=== PATIENT | male | born 1975 | race Caucasian/White ===

== ENCOUNTER 2018-03-29 22:38 | Emergency (ER) | payer MEDICARE ==
[~2018-03-29] VITALS: Ht 180.3 cm; Wt 96.2 kg
--- NOTE | 2018-03-29 22:52 | ED.ADGEN ---
Past History Past Medical History: Anxiety, GERD, Hypertension, Other Past Medical History Cerebral palsy Adult General Chief Complaint Chief Complaint ".. I ve been having some chest pain off and on.. and I did take a anti acid this morning... but I eric had constant pain since 830 tonight... here in this area.. ( points to just under clavicle Lt sternal border).. I had this same thing in 2005.. and I went to the hospital and it turned out to be just anxiety... The bad thing is I ve been to the ER three times in this past week.. I twisted my Lt ankle,, then I was cooking .. dropped the knife and it cut my Lt leg..."... " and now this.." HPI HPI Patient is a 42 year old male who presents with above hx and complaints of chest pain of area just under left clavicle and sternal edge. Pain appears to be reproducible with palpation. Does cover an area approximately 1-2 cm. Patient denies any previous history of cardiac disorders. Patient does not smoke patient denies illicit drug use. Patient denies any trauma. Patient does have a history of GERD which in the past he is taking anti acid s.. (zantac, pepcid, ect.). Patient has had lifelong cerebral palsy with right-sided deficits. Recent moved from [place] to [facility] in November. Has not followed with a primary care here since move from [place]. No hx prior DVT or PE with him or family. . Review of Systems Review of Systems Constitutional: Denies fever or chills [] Eyes: Denies change in visual acuity, redness, or eye pain [] HENT: Denies nasal congestion or sore throat [] Respiratory: Denies cough or shortness of breath [] Cardiovascular: No additional information not addressed in HPI [] GI: Denies abdominal pain, nausea, vomiting, bloody stools or diarrhea [] : Denies dysuria or hematuria [] Musculoskeletal: Denies back pain or joint pain [] Integument: Denies rash or skin lesions [] Neurologic: Denies headache, focal weakness or sensory changes [] Endocrine: Denies polyuria or polydipsia [] All other systems were reviewed and found to be within normal limits, except as documented in this note. Family History Family History Noncontributory Current Medications Current Medications Current Medications Medications (Trade) Dose Ordered Sig/Benja Start Time Stop Time Status Last Admin Dose Admin Aspirin (Children'S Aspirin) 324 mg 1X ONCE 03/29/18 23:15 03/30/18 00:02 DC 03/29/18 23:35 324 MG Famotidine (Pepcid Vial) 20 mg 1X ONCE 03/29/18 23:15 03/30/18 00:02 DC 03/29/18 23:34 20 MG Ketorolac Tromethamine (Toradol 30mg Vial) 30 mg 1X ONCE 03/30/18 01:00 03/30/18 01:01 UNV Lactated Ringer's 1,000 ml @ 1,000 mls/hr Q1H 03/29/18 23:12 03/30/18 00:11 DC 03/29/18 23:35 1,000 MLS/HR Magnesium Hydroxide (Milk Of Magnesia) 2,400 mg 1X ONCE 03/30/18 01:00 03/30/18 01:01 UNV Potassium Chloride (KCl Oral Soln) 40 meq 1X ONCE 03/30/18 01:00 03/30/18 01:01 UNV Allergies Allergies Allergies Coded Allergies Type Severity Reaction Last Updated Verified No Known Drug Allergies 03/29/18 No Physical Exam Physical Exam Constitutional: Moderately acute distress, non-toxic appearance. [] HENT: Normocephalic, atraumatic, bilateral external ears normal, oropharynx moist, no oral exudates, nose normal. [] Eyes: PERRLA, EOMI, conjunctiva normal, no discharge. [] Neck: Normal range of motion, no tenderness, supple, no stridor. [] Cardiovascular:Heart rate regular rhythm, no murmur ,. Lungs & Thorax: Bilateral breath sounds equal apexes with scattered wheezes on auscultation []. Point tenderness on upper left sternal border just under clavicle. Abdomen: Bowel sounds normal, soft, no tenderness, no masses, no pulsatile masses. [] Skin: Warm, dry, no erythema, no rash. [] Back: No tenderness, no CVA tenderness. [] Extremities: No tenderness, no cyanosis, no clubbing, ROM intact, no edema. [] Laceration kj on left medel. No cording appreciated. Right-sided deficits ( Weakness) that are chronic. Neurologic: Alert and oriented X 3, patient reports no change in his baseline motor or sensory function, no focal deficits noted. [] Psychologic: Affect anxious, judgement normal, mood normal. [] Current Patient Data Vital Signs Vital Signs Date Time Temp Pulse Resp B/P (MAP) Pulse Ox O2 Delivery O2 Flow Rate FiO2 03/29/18 23:39 103 18 134/77 (96) 96 Room Air 03/29/18 22:38 98.6 Lab Results Laboratory Tests Test 03/29/18 22:47 03/30/18 00:15 White Blood Count 6.9 x10^3/uL (4.0-11.0) Red Blood Count 5.41 x10^6/uL (4.30-5.70) Hemoglobin 16.5 g/dL (13.0-17.5) Hematocrit 47.5 % (39.0-53.0) Mean Corpuscular Volume 88 fL (79-100) Mean Corpuscular Hemoglobin 30 pg (25-35) Mean Corpuscular Hemoglobin Concent 35 g/dL (31-37) Red Cell Distribution Width 13.4 % (11.5-14.5) Platelet Count 300 x10^3/uL (140-400) Neutrophils (%) (Auto) 59 % (31-73) Lymphocytes (%) (Auto) 29 % (24-48) Monocytes (%) (Auto) 8 % (0-9) Eosinophils (%) (Auto) 3 % (0-3) Basophils (%) (Auto) 1 % (0-3) Neutrophils # (Auto) 4.1 x10^3uL (1.8-7.7) Lymphocytes # (Auto) 2.0 x10^3/uL (1.0-4.8) Monocytes # (Auto) 0.6 x10^3/uL (0.0-1.1) Eosinophils # (Auto) 0.2 x10^3/uL (0.0-0.7) Basophils # (Auto) 0.1 x10^3/uL (0.0-0.2) Prothrombin Time 10.1 SEC (9.4-11.4) Prothrombin Time INR 1.0 (0.9-1.1) PTT 26 SEC (23-33) D-Dimer (Yisel) 0.21 mg/L (0.00-0.50) Sodium Level 141 mmol/L (136-145) Potassium Level 3.4 mmol/L (3.5-5.1) L Chloride Level 105 mmol/L (98-107) Carbon Dioxide Level 26 mmol/L (21-32) Anion Gap 10 (6-14) Blood Urea Nitrogen 11 mg/dL (8-26) Creatinine 1.3 mg/dL (0.7-1.3) Estimated GFR (Cockcroft-Gault) 60.8 Glucose Level 131 mg/dL (70-99) H Calcium Level 9.0 mg/dL (8.5-10.1) Magnesium Level 2.2 mg/dL (1.8-2.4) Total Bilirubin 0.7 mg/dL (0.2-1.0) Direct Bilirubin 0.2 mg/dL (0.0-0.2) Aspartate Amino Transferase (AST) 44 U/L (15-37) H Alanine Aminotransferase (ALT) 104 U/L (16-63) H Alkaline Phosphatase 80 U/L (46-116) Creatine Kinase 95 U/L (39-308) Troponin I Quantitative < 0.017 ng/mL (0-0.055) GF-Wyv-U-Type Natriuretic Peptide 15 pg/mL (0-124) Total Protein 7.8 g/dL (6.4-8.2) Albumin 4.1 g/dL (3.4-5.0) Lipase 305 U/L (73-393) Urine Collection Type Unknown Urine Color Yellow Urine Clarity Hazy Urine pH 7.0 Urine Specific [place] 1.020 Urine Protein Neg (NEG-TRACE) Urine Glucose (UA) Neg mg/dL (NEG) Urine Ketones (Stick) Neg mg/dL (NEG) Urine Blood Neg (NEG) Urine Nitrite Neg (NEG) Urine Bilirubin Neg (NEG) Urine Urobilinogen Dipstick 4 mg/dL (0.2 mg/dL) Urine Leukocyte Esterase Neg (NEG) Urine RBC Rare /HPF (0-2) Urine WBC Rare /HPF (0-4) Urine Squamous Epithelial Cells Occ /LPF Urine Amorphous Sediment Present /HPF Urine Bacteria 0 /HPF (0-FEW) EKG EKG My interpretation EKG shows a sinus rhythm at 90 bpm. There is some bimodal P- wave left leads. Does have some nonspecific inferior changes.[] Radiology/Procedures Radiology/Procedures I interpretation chest x-ray shows no acute cardiopulmonary findings.[] Course & Med Decision Making Course & Med Decision Making Pertinent Labs and Imaging studies reviewed. (See chart for details). Take ibuprofen and Tylenol as needed for chest wall pain. Take a baby aspirin a day with food until follow-up primary care. Return if any concerns. Push fruit juices. Take Zantac 50 mg twice a day. Must follow-up. Return if any concerns. [] Final Impression Final Impression 1. Chest pain chest wall-suspected 2. History of cerebral palsy with right-sided deficits[] 3. History of GERD Dragon Disclaimer Dragon Disclaimer This electronic medical record was generated, in whole or in part, using a voice recognition dictation system. SHOLA HARDIN MD Mar 29, 2018 22:52
[2018-03-29] MEDS ORDERED: IV RINGERS SOLUTION,LACTATED 1,000 ML IV SCH (23:12)
[2018-03-29] MEDS ORDERED: FAMOTIDINE 20 MG/2 ML VIAL IVP ONE (23:15)
[2018-03-29] MEDS ORDERED: ASPIRIN 81 MG TAB.CHEW PO ONE (23:15)
[2018-03-29 23:27] LABS: BASO # 0.1 x10^3/uL (0.0-0.2); BASO % 1 % (0-3); EOS # 0.2 x10^3/uL (0.0-0.7); EOS % 3 % (0-3); HEMATOCRIT 47.5 % (39.0-53.0); HEMOGLOBIN 16.5 g/dL (13.0-17.5); LYMPH % 29 % (24-48); MEAN CORPUSCULAR HEMOGLOBIN 30 pg (25-35); MEAN CORPUSCULAR HGB CONC 35 g/dL (31-37); MEAN CORPUSCULAR VOLUME 88 fL (79-100); MONO # 0.6 x10^3/uL (0.0-1.1); MONO % 8 % (0-9); NEUT # 4.1 x10^3uL (1.8-7.7); NEUT % 59 % (31-73); PLATELET COUNT 300 x10^3/uL (140-400); RED BLOOD COUNT 5.41 x10^6/uL (4.30-5.70); RED CELL DISTRIBUTION WIDTH 13.4 % (11.5-14.5); WHITE BLOOD COUNT 6.9 x10^3/uL (4.0-11.0)
[2018-03-29] MEDS ORDERED: RANI150T21 PO (23:30)
[2018-03-29 23:38] LABS: ALBUMIN 4.1 g/dL (3.4-5.0); CREATININE 1.3 mg/dL (0.7-1.3); DIRECT BILIRUBIN 0.2 mg/dL (0.0-0.2); GFR 60.8; MAGNESIUM 2.2 mg/dL (1.8-2.4); POTASSIUM 3.4 mmol/L (3.5-5.1); TOTAL BILIRUBIN 0.7 mg/dL (0.2-1.0); TOTAL PROTEIN 7.8 g/dL (6.4-8.2)
--- NOTE | 2018-03-30 00:06 | RAD ---
Examination: CHEST PA LATERAL History: left sided chest pain
no heart or lung disease Comparison/Correlation: None Findings: PA and lateral views of the chest were obtained. Heart size and pulmonary vasculature are normal. No infiltrate or pleural effusion. No pneumothorax. Bony structures are unremarkable. Impression: Normal two-view chest x-ray exam. Electronically signed by: Abiel Waggoner MD (03/30/2018 12:04 AM) [facility]
[2018-03-30 00:59] LABS: AMORPHOUS SEDIMENT,UR PRESENT /HPF; BACTERIA,URINE 0 /HPF (0-FEW); BARBITURATES NEG (NEG); BENZODIAZEPINES NEG (NEG); BILIRUBIN,URINE NEG (NEG); CANNABINOIDS NEG (NEG); CLARITY,URINE HAZY; COCAINE NEG (NEG); COLOR,URINE YELLOW; GLUCOSE,URINE NEG (NEG); METHADONE NEG (NEG); NITRITE,URINE NEG (NEG); OPIATES NEG (NEG); PHENCYCLIDINE NEG (NEG); RBC,URINE RARE /HPF (0-2); SQUAMOUS EPITHELIAL CELL,UR OCC /LPF; UROBILINOGEN,URINE 4 mg/dL (0.2 mg/dL); WBC,URINE RARE /HPF (0-4)
[2018-03-30] MEDS ORDERED: MAGNESIUM HYDROXIDE 2,400 MG/30 ML ORAL.SUSP. PO ONE (01:00)
[2018-03-30] MEDS ORDERED: POTASSIUM CHLORIDE 20 MEQ/15 ML ORAL LIQUID. PO ONE (01:00)
[2018-03-30] MEDS ORDERED: KETOROLAC 30 MG/ML VIAL. IV ONE (01:00)
[2018-03-30 01:04] LABS: AMPHETAMINE/METHAMPHETAMINE NEG (NEG)
[2018-03-30] MEDS ORDERED: POTASSIUM CHLORIDE 20 MEQ TABLET.ER. PO ONE (01:07)
[2018-03-30 01:15] VITALS: BP 130/73
--- NOTE | 2018-03-30 07:50 | EKG ---
[address] [address] Test Date: 2018-03-29 Test Time: 22:48:01 Pat Name: GRACE MARQUEZ Department: Room: Gender: M [employer] Floor Technician: : 1975 Requested By: SHOLA HARDIN Order Number: [id number] Reading MD: Measurements Intervals [place] Rate: 90 P: 31 ME: 124 QRS: 43 QRSD: 102 T: 0 QT: 316 QTc: 390 Interpretive Statements SINUS RHYTHM LEFT ATRIAL ABNORMALITY QRS(T) CONTOUR ABNORMALITY CONSIDER INFERIOR MYOCARDIAL DAMAGE ABNORMAL ECG RI6.01 Unconfirmed report No previous ECG available for comparison
== END 2018-03-30 01:30 | disposition home or self-care (01) ==
LOC: ER 22:38
DX: R07.2 Precordial pain (principal); G80.9 Cerebral palsy, unspecified; K21.9 Gastro-esophageal reflux disease without esophagitis; F41.9 Anxiety disorder, unspecified; I10 Essential (primary) hypertension
CPT/HCPCS: 36415; 71046; 80048; 80076; 80307; 81001; 82550; 83690; 83735; 83880; 84443; 84484; 85025; 85379; 85610; 85730; 93005; 96374; 96375; 99285; J1885; J7120; S0028; G0479